=== PATIENT | female | born 1990 | race American Indian/Alaskan Native ===

== ENCOUNTER 2017-06-23 11:57 | Emergency (ER) | payer MEDICAID ==
[2015-10-11 18:28] VITALS: BMI 18.4
[~2017-06-23 11:57] MED LIST: CIPRO500 MG PO
== END 2017-06-23 15:52 | disposition home or self-care (01) ==
LOC: D.ER 11:57
DX: O26.86 Pruritic urticarial papules and plaques of pregnancy (PUPPP) (principal); Z3A.18 18 weeks gestation of pregnancy

== ENCOUNTER 2018-03-11 11:56 | Emergency (ER) | payer MEDICAID ==
[2015-10-11 18:28] VITALS: BMI 18.4
== END 2018-03-11 14:35 | disposition home or self-care (01) ==
LOC: D.ER 11:56
DX: J06.9 Acute upper respiratory infection, unspecified (principal); J20.9 Acute bronchitis, unspecified

== ENCOUNTER 2018-07-14 08:50 | Emergency (ER) | payer MEDICAID ==
[~2018-07-14] VITALS: Ht 167.6 cm; Wt 59.1 kg
[2018-07-14 09:02] VITALS: Ht 167.6 cm; Wt 59.1 kg
[2018-07-14] MEDS ORDERED: VENTOLIN HFA18 GM INH (10:43)
[2018-07-14] MEDS ORDERED: OMNICEF300 MG PO (10:43)
[2018-07-14 11:04] VITALS: BP 102/068
== END 2018-07-14 11:05 | disposition home or self-care (01) ==
LOC: D.ER 08:50
DX: J01.90 Acute sinusitis, unspecified (principal); J20.9 Acute bronchitis, unspecified; G40.909 Epilepsy, unspecified, not intractable, without status epilepticus; Z85.41 Personal history of malignant neoplasm of cervix uteri